=== PATIENT | male | born 1950 | race Caucasian/White ===

== ENCOUNTER 2016-04-08 22:18 | Inpatient (IN) | payer SELFPAY ==
[~2016-04-08] VITALS: Ht 175.3 cm; Wt 90.7 kg
[2016-04-08] MEDS ORDERED: OMEP20CA10 PO (22:38)
[2016-04-08] MEDS ORDERED: CARB-93 PO (22:38)
[2016-04-08] MEDS ORDERED: AMLO5TAB2 PO (22:38)
[2016-04-08] MEDS ORDERED: PROP10TA10 PO (22:38)
[2016-04-08] MEDS ORDERED: VENL75TA4 PO (22:38)
[2016-04-08] MEDS ORDERED: ROPI1TAB2 PO (22:38)
[2016-04-08] MEDS ORDERED: ZOLP10TA6 PO (22:38)
[2016-04-08] MEDS ORDERED: LORA1TAB PO (22:38)
[2016-04-08] MEDS ORDERED: IV SET PRIMARY 1 EA INFUS.SET MC ONE (22:43)
[2016-04-08] MEDS ORDERED: IV NS 0.9% 1,000 ML ONE (22:43)
[2016-04-08 22:53] LABS: BASOPHILS % (AUTO) 0.1 % (0.0-2.0); DIFF TOTAL % 100 %; EOSINOPHILS % (AUTO) 0.1 % (0.0-6.0); HEMATOCRIT 32 % (39-51); HEMOGLOBIN 10.9 g/dL (13.5-17.5); LYMPHOCYTES # (AUTO) 0.4 /CMM (0.8-4.8); LYMPHOCYTES % (AUTO) 2.2 % (20.0-44.0); MEAN CORPUSCULAR HEMOGLOBIN 31 PG (26.0-33.0); MEAN CORPUSCULAR HGB CONC 34 g/dl (31.0-36.0); MEAN CORPUSCULAR VOLUME 90 fL (80-96); MONOCYTES % (AUTO) 5.9 % (2.0-12.0); NEUTROPHILS # (AUTO) 14.8 /CMM (1.8-8.9); NEUTROPHILS % (AUTO) 91.7 % (43.0-81.0); PLATELET COUNT (AUTO) 242 /CMM (150-450); RED BLOOD CELL COUNT(AUTO) 3.54 MIL/uL (4.5-6.0); WHITE BLOOD COUNT (AUTO) 16.1 K/uL (4.3-11.0)
[2016-04-08] MEDS ORDERED: IV NS 0.9% 1,000 ML BAG IV ONE (23:00)
[2016-04-08 23:02] LABS: ANION GAP 16 (5-14); CALCIUM, SERUM 9.2 mg/dL (8.5-10.1); CARBON DIOXIDE 21 mmol/L (21-32); CHLORIDE 92 mmol/L (98-107); CREATININE 2.1 mg/dL (0.6-1.3); GFR 32 mL/min (>60); GLUCOSE 174 mg/dL (74-106); POTASSIUM 3.4 mmol/L (3.5-5.1); SODIUM SERUM 126 mmol/L (136-145); UREA NITROGEN, BLOOD 19 mg/dL (7-18)
[2016-04-08 23:08] LABS: INR 1.18 (0.87-1.13); PROTHROMBIN TIME 12.8 SECS (9.5-12.7)
[2016-04-08 23:09] LABS: ALANINE AMINOTRANSFERASE 7 U/L (12-78); ALBUMIN 2.9 g/dL (3.4-5.0); ASPARTATE AMINOTRANSFERASE 21 U/L (15-37); BILIRUBIN,DIRECT 0.5 mg/dL (0.0-0.2); BILIRUBIN,TOTAL 1.5 mg/dL (0.2-1.0); TOTAL PROTEIN, SERUM 8.2 g/dL (6.4-8.2)
[2016-04-08 23:10] LABS: TROPONIN I 0.095 ng/mL (0.00-0.056)
[2016-04-08 23:17] LABS: THYROID STIMULATING HORMONE 0.994 uIU/mL (0.358-3.74)
[2016-04-08 23:23] LABS: BAND % (MANUAL) 2 % (0.0-5.0); LYMPHOCYTES % (MANUAL) 1 % (16-48); PLATELET ESTIMATE ADEQUATE
[2016-04-08 23:34] LABS: LACTIC ACID 4.4 mmol/L (0.4-2.0)
[2016-04-08 23:42] LABS: *LACTIC ACID REFLEX FLAG YES
[2016-04-09] MEDS ORDERED: CEFTRIAXONE 1GM BAG (ER ONLY) 1 GM/50 ML PIGGYBACK IV ONE
[2016-04-09 00:14] LABS: KETONES,URINE 1+ (NEGATIVE); LEUKOCYTE ESTERASE ,URINE NEGATIVE (NEGATIVE)
[2016-04-09 00:16] LABS: ADD UA MICROSCOPIC YES
[2016-04-09 00:22] LABS: ADD URINE CULTURE NO; RBC,URINE 0-2 /HPF (0-2)
[2016-04-09] MEDS ORDERED: ASPIRIN 325 MG TABLET PO ONE (00:30)
[2016-04-09] MEDS ORDERED: IV NS 0.9% 1,000 ML BAG IV ONE (00:30)
[2016-04-09] MEDS ORDERED: IV SET PRIMARY 1 EA INFUS.SET MC ONE (00:34)
[2016-04-09] MEDS ORDERED: CEFTRIAXONE 1GM BAG (ER ONLY) 50 ML IV ONE (00:34)
[2016-04-09] MEDS ORDERED: IV SET PRIMARY PUMP SET 1 EA INFUS.SET MC ONE ×2 (00:34→09:30)
[2016-04-09] MEDS ORDERED: IV NS 0.9% 1,000 ML ONE (00:34)
[2016-04-09] MEDS ORDERED: IV NS 0.9% 500 ML IV ONE (00:34)
[2016-04-09] MEDS ORDERED: ASPIRIN 325 MG TABLET ONE (00:34)
[2016-04-09 02:00] VITALS: BP 147/85
[2016-04-09] MEDS ORDERED: IV NS 0.9% 1,000 ML IV PRN (02:39)
[2016-04-09] MEDS ORDERED: ONDANSETRON HCL/PF 4 MG/2 ML VIAL IVP PRN (03:00)
[2016-04-09] MEDS ORDERED: CEFTRIAXONE 1 G in IV D5W 50 ML IV SCH (03:00)
[2016-04-09] MEDS ORDERED: ENOXAPARIN SODIUM 40 MG/0.4 ML DISP.SYRIN SQ SCH (03:00)
[2016-04-09 03:24] LABS: CALCIUM, SERUM 8.5 mg/dL (8.5-10.1); CREATININE 1.7 mg/dL (0.6-1.3); PHOSPHORUS 2.5 mg/dL (2.5-4.9); POTASSIUM 3.3 mmol/L (3.5-5.1)
[2016-04-09 03:54] LABS: DIFF TOTAL % 100 %; HEMATOCRIT 28 % (39-51); HEMOGLOBIN 9.7 g/dL (13.5-17.5); LYMPHOCYTES # (AUTO) 0.4 /CMM (0.8-4.8); LYMPHOCYTES % (AUTO) 2.7 % (20.0-44.0); MEAN CORPUSCULAR HEMOGLOBIN 31 PG (26.0-33.0); MEAN CORPUSCULAR HGB CONC 35 g/dl (31.0-36.0); MEAN CORPUSCULAR VOLUME 90 fL (80-96); MONOCYTES # (AUTO) 1.1 /CMM (0.1-1.30); MONOCYTES % (AUTO) 7.9 % (2.0-12.0); NEUTROPHILS % (AUTO) 89.4 % (43.0-81.0); PLATELET COUNT (AUTO) 212 /CMM (150-450); RED BLOOD CELL COUNT(AUTO) 3.11 MIL/uL (4.5-6.0); WHITE BLOOD COUNT (AUTO) 13.4 K/uL (4.3-11.0)
[2016-04-09] MEDS ORDERED: ENOXAPARIN SODIUM 40 MG/0.4 ML DISP.SYRIN SQ ONE (04:31)
[2016-04-09 05:00] VITALS: BP 163/90
[2016-04-09 08:00] VITALS: BP 167/101
[2016-04-09] MEDS: ropiniROLE 0.5 MG TABLET PO SCH ×3 (09:48→16:16)
[2016-04-09] MEDS: AMLODIPINE BESYLATE 5 MG TABLET PO SCH (09:49)
[2016-04-09] MEDS: PROPRANOLOL HCL 10 MG TABLET PO SCH ×3 (09:50→16:16)
[2016-04-09] MEDS: CARBIDOPA/LEVODOPA 25/100 MG 1 UDTAB PO SCH ×4 (09:55→21:00)
[2016-04-09] MEDS ORDERED: AZITHROMYCIN 250 MG TABLET PO ONE (11:00)
[2016-04-09 11:04] LABS: IRON, SERUM 19 ug/dl (50-175); PERCENT SATURATION 10 % (14-33); TOTAL IRON BINDING CAPACITY 198 ug/dl (250-450)
[2016-04-09 12:00] VITALS: BP 121/86
[2016-04-09] MEDS ORDERED: POTASSIUM CHLORIDE 10 MEQ TABLET.SA PO ONE (12:00)
[2016-04-09] MEDS ORDERED: Magnesium 1GM/D5W 100ML PREMIX 100 ML IV SCH (12:00)
[2016-04-09] MEDS ORDERED: SECONDARY IV SET 1 EA INFUS.SET MC ONE (12:15)
[2016-04-09] MEDS: IV NS 0.9% 1,000 ML IV PRN (12:50)
[2016-04-09] MEDS ORDERED: Z GUARD REMEDY 2 OZ OINT TP PRN (13:30)
[2016-04-09] MEDS: Z GUARD REMEDY 2 OZ OINT TP SCH ×2 (15:16→16:18)
[2016-04-09 16:00] VITALS: BP 154/96
[2016-04-09] MEDS: LORAZEPAM 1 MG TABLET PO SCH (16:17)
[2016-04-09] MEDS ORDERED: VENLAFAXINE 37.5 MG TABLET PO SCH (17:00)
[2016-04-09] MEDS ORDERED: ZOLPIDEM TARTRATE 10 MG TABLET PO SCH (18:00)
[2016-04-09 20:00] VITALS: BP 143/80
[2016-04-09] MEDS: VENLAFAXINE XR 150 MG CAP.SR.24H PO SCH (21:00)
[2016-04-09] MEDS ORDERED: ALBUTEROL FS 2.5 MG/0.5 ML VIAL.NEB NEB PRN (23:30)
[2016-04-09] MEDS ORDERED: IPRATROPIUM NEB FS 0.5 MG/2.5 ML AMPUL.NEB NEB PRN (23:30)
[2016-04-10] VITALS (8 sets, daily range): BP systolic 119–161; BP diastolic 72–87
[2016-04-10] MEDS ORDERED: ACETAMINOPHEN 650 MG/SUPP.RECT RC ONE (00:58)
[2016-04-10] MEDS ORDERED: ACETAMINOPHEN 650 MG/SUPP.RECT RC PRN (01:00)
[2016-04-10] MEDS: CEFTRIAXONE 1 G in IV D5W 50 ML IV SCH ×2 (01:11→22:55)
[2016-04-10] MEDS: IV NS 0.9% 1,000 ML IV PRN (01:12)
[2016-04-10 07:29] LABS: DIFF TOTAL % 100 %; HEMATOCRIT 28 % (39-51); HEMOGLOBIN 9.7 g/dL (13.5-17.5); LYMPHOCYTES # (AUTO) 0.4 /CMM (0.8-4.8); LYMPHOCYTES % (AUTO) 3.2 % (20.0-44.0); MEAN CORPUSCULAR HEMOGLOBIN 31 PG (26.0-33.0); MEAN CORPUSCULAR HGB CONC 35 g/dl (31.0-36.0); MEAN CORPUSCULAR VOLUME 90 fL (80-96); MONOCYTES # (AUTO) 0.7 /CMM (0.1-1.30); MONOCYTES % (AUTO) 6.3 % (2.0-12.0); NEUTROPHILS % (AUTO) 90.5 % (43.0-81.0); PLATELET COUNT (AUTO) 205 /CMM (150-450)
[2016-04-10 07:48] LABS: CALCIUM, SERUM 8.6 mg/dL (8.5-10.1); CREATININE 1.6 mg/dL (0.6-1.3); PHOSPHORUS 2.7 mg/dL (2.5-4.9); POTASSIUM 3.3 mmol/L (3.5-5.1)
[2016-04-10] MEDS: VENLAFAXINE XR 150 MG CAP.SR.24H PO SCH ×2 (08:43→21:23)
[2016-04-10] MEDS: AMLODIPINE BESYLATE 5 MG TABLET PO SCH (08:43)
[2016-04-10] MEDS: PROPRANOLOL HCL 10 MG TABLET PO SCH (08:43)
[2016-04-10] MEDS: LORAZEPAM 1 MG TABLET PO SCH ×2 (08:43→16:05)
[2016-04-10] MEDS: ropiniROLE 0.5 MG TABLET PO SCH ×3 (08:43→16:08)
[2016-04-10] MEDS: Z GUARD REMEDY 2 OZ OINT TP SCH ×2 (08:44→16:05)
[2016-04-10] MEDS: ENOXAPARIN SODIUM 40 MG/0.4 ML DISP.SYRIN SQ SCH (08:45)
[2016-04-10] MEDS: CARBIDOPA/LEVODOPA 25/100 MG 1 UDTAB PO SCH ×4 (08:45→21:23)
[2016-04-10] MEDS ORDERED: POTASSIUM CHLORIDE 20 MEQ TAB.PRT.SR PO SCH (11:00)
[2016-04-10] MEDS: AZITHROMYCIN 250 MG TABLET PO SCH (11:28)
[2016-04-10 11:41] LABS: THYROID STIMULATING HORMONE 0.269 uIU/mL (0.358-3.74)
[2016-04-10] MEDS: ACETAMINOPHEN 325 MG TABLET PO PRN (12:33)
[2016-04-10 13:08] LABS: ABG BASE EXCESS -1.3 mmol/L; ABG PCO2 31.8 mmHg (35.0-45.0); ABG PH 7.457 (7.350-7.450); ABG TOTAL HEMOGLOBIN 10.9 G/dL (13.5-18.0); ALLEN TEST Pass; AaDO2 318.8 mmHg
[2016-04-10] MEDS: SOD FERRIC GLUC 125 MG in IV NS 0.9% 100 ML IV SCH (16:05)
[2016-04-10] MEDS: LACTOBACILLUS RHAMNOSUS GG 1 EACH CAP.SPRINK PO SCH (16:08)
[2016-04-10] MEDS: ALBUTEROL FS 2.5 MG/0.5 ML VIAL.NEB NEB SCH ×3 (16:21→22:52)
[2016-04-10] MEDS: BOOST PLUS FOOD-CHOCLATE 237 ML BOX PO SCH (18:47)
[2016-04-10] MEDS: IPRATROPIUM NEB FS 0.5 MG/2.5 ML AMPUL.NEB NEB SCH ×2 (20:12→22:51)
[2016-04-10] MEDS ORDERED: SECONDARY IV SET 1 EA INFUS.SET MC ONE (22:56)
[2016-04-10] MEDS: ZOLPIDEM TARTRATE 10 MG TABLET PO PRN (23:05)
[2016-04-11] VITALS: BP 150/88
[2016-04-11] MEDS: IPRATROPIUM NEB FS 0.5 MG/2.5 ML AMPUL.NEB NEB SCH ×5 (03:45→21:01)
[2016-04-11] MEDS: ALBUTEROL FS 2.5 MG/0.5 ML VIAL.NEB NEB SCH ×5 (03:45→21:01)
[2016-04-11 04:00] VITALS: BP 155/88
[2016-04-11 07:14] LABS: DIFF TOTAL % 100 %; EOSINOPHILS % (AUTO) 0.1 % (0.0-6.0); HEMATOCRIT 26 % (39-51); HEMOGLOBIN 9.1 g/dL (13.5-17.5); LYMPHOCYTES # (AUTO) 0.3 /CMM (0.8-4.8); LYMPHOCYTES % (AUTO) 4.2 % (20.0-44.0); MEAN CORPUSCULAR HEMOGLOBIN 31 PG (26.0-33.0); MEAN CORPUSCULAR HGB CONC 35 g/dl (31.0-36.0); MEAN CORPUSCULAR VOLUME 90 fL (80-96); MONOCYTES # (AUTO) 0.6 /CMM (0.1-1.30); NEUTROPHILS # (AUTO) 6.8 /CMM (1.8-8.9); NEUTROPHILS % (AUTO) 87.7 % (43.0-81.0); PLATELET COUNT (AUTO) 198 /CMM (150-450); RED BLOOD CELL COUNT(AUTO) 2.92 MIL/uL (4.5-6.0); WHITE BLOOD COUNT (AUTO) 7.7 K/uL (4.3-11.0)
[2016-04-11 07:34] LABS: ALBUMIN 1.8 g/dL (3.4-5.0); BILIRUBIN,TOTAL 1.1 mg/dL (0.2-1.0); CALCIUM, SERUM 8.3 mg/dL (8.5-10.1); CREATININE 1.5 mg/dL (0.6-1.3); PHOSPHORUS 2.3 mg/dL (2.5-4.9); POTASSIUM 3.5 mmol/L (3.5-5.1); TOTAL PROTEIN, SERUM 6.3 g/dL (6.4-8.2)
[2016-04-11 08:00] VITALS: BP 164/94
[2016-04-11] MEDS: AMLODIPINE BESYLATE 5 MG TABLET PO SCH (08:44)
[2016-04-11] MEDS: DILTIAZEM HCL CD 240 MG PO SCH (08:44)
[2016-04-11] MEDS: BOOST PLUS FOOD-CHOCLATE 237 ML BOX PO SCH ×3 (08:44→16:24)
[2016-04-11] MEDS: LORAZEPAM 1 MG TABLET PO SCH ×2 (08:45→16:25)
[2016-04-11] MEDS: CARBIDOPA/LEVODOPA 25/100 MG 1 UDTAB PO SCH ×4 (08:45→21:27)
[2016-04-11] MEDS: VENLAFAXINE XR 150 MG CAP.SR.24H PO SCH ×2 (08:45→21:27)
[2016-04-11] MEDS: ropiniROLE 0.5 MG TABLET PO SCH ×3 (08:45→16:25)
[2016-04-11] MEDS: LACTOBACILLUS RHAMNOSUS GG 1 EACH CAP.SPRINK PO SCH ×2 (08:45→16:25)
[2016-04-11] MEDS: Z GUARD REMEDY 2 OZ OINT TP SCH ×2 (08:48→16:26)
[2016-04-11] MEDS: ENOXAPARIN SODIUM 40 MG/0.4 ML DISP.SYRIN SQ SCH (08:52)
[2016-04-11] MEDS: AZITHROMYCIN 250 MG TABLET PO SCH (11:47)
[2016-04-11] MEDS ORDERED: K PHOS NEUTRAL 250 MG TABLET PO ONE (14:00)
[2016-04-11] MEDS: SOD FERRIC GLUC 125 MG in IV NS 0.9% 100 ML IV SCH (14:40)
[2016-04-11 15:54] VITALS: BP 135/74
[2016-04-11 20:00] VITALS: BP 134/76
[2016-04-11] MEDS: IBUPROFEN 400 MG TABLET PO PRN (21:27)
[2016-04-11] MEDS: CEFTRIAXONE 1 G in IV D5W 50 ML IV SCH (23:02)
[2016-04-12] MEDS: IPRATROPIUM NEB FS 0.5 MG/2.5 ML AMPUL.NEB NEB SCH ×7 (00:46→23:32)
[2016-04-12] MEDS: ALBUTEROL FS 2.5 MG/0.5 ML VIAL.NEB NEB SCH ×7 (00:46→23:32)
[2016-04-12] MEDS ORDERED: MAG HYDROX/AL HYDROX/SIMETH 30 ML UDC PO PRN (01:00)
[2016-04-12 06:26] LABS: EOSINOPHILS % (AUTO) 0.1 % (0.0-6.0); HEMATOCRIT 28 % (39-51); HEMOGLOBIN 9.5 g/dL (13.5-17.5); LYMPHOCYTES # (AUTO) 0.4 /CMM (0.8-4.8); LYMPHOCYTES % (AUTO) 6.7 % (20.0-44.0); MEAN CORPUSCULAR HEMOGLOBIN 31 PG (26.0-33.0); MEAN CORPUSCULAR HGB CONC 34 g/dl (31.0-36.0); MEAN CORPUSCULAR VOLUME 90 fL (80-96); MONOCYTES # (AUTO) 0.7 /CMM (0.1-1.30); MONOCYTES % (AUTO) 11.2 % (2.0-12.0); NEUTROPHILS # (AUTO) 4.9 /CMM (1.8-8.9); PLATELET COUNT (AUTO) 213 /CMM (150-450)
[2016-04-12 06:46] LABS: CALCIUM, SERUM 8.4 mg/dL (8.5-10.1); CREATININE 1.4 mg/dL (0.6-1.3)
[2016-04-12 06:56] LABS: DIFF TOTAL % 100 %
[2016-04-12] MEDS: IBUPROFEN 400 MG TABLET PO PRN (07:35)
[2016-04-12] MEDS: BOOST PLUS FOOD-CHOCLATE 237 ML BOX PO SCH ×3 (07:36→16:46)
[2016-04-12 08:07] LABS: POTASSIUM 2.8 mmol/L (3.5-5.1)
[2016-04-12] MEDS ORDERED: POTASSIUM CHLORIDE 20 MEQ TAB.PRT.SR PO ONE (08:30)
[2016-04-12] MEDS: LACTOBACILLUS RHAMNOSUS GG 1 EACH CAP.SPRINK PO SCH ×2 (08:39→16:39)
[2016-04-12] MEDS: ropiniROLE 0.5 MG TABLET PO SCH ×3 (08:39→16:39)
[2016-04-12] MEDS: DILTIAZEM HCL CD 240 MG PO SCH (08:39)
[2016-04-12] MEDS: VENLAFAXINE XR 150 MG CAP.SR.24H PO SCH ×2 (08:39→20:42)
[2016-04-12] MEDS: AMLODIPINE BESYLATE 5 MG TABLET PO SCH (08:40)
[2016-04-12] MEDS: LORAZEPAM 1 MG TABLET PO SCH (08:40)
[2016-04-12] MEDS: Z GUARD REMEDY 2 OZ OINT TP SCH ×2 (08:41→16:40)
[2016-04-12] MEDS: CARBIDOPA/LEVODOPA 25/100 MG 1 UDTAB PO SCH ×4 (08:42→20:42)
[2016-04-12] MEDS: ENOXAPARIN SODIUM 40 MG/0.4 ML DISP.SYRIN SQ SCH (08:43)
[2016-04-12] MEDS: AZITHROMYCIN 250 MG TABLET PO SCH (11:58)
[2016-04-12] MEDS ORDERED: IV NS 0.9% 250 ML IV ONE (13:11)
[2016-04-12] MEDS: SOD FERRIC GLUC 125 MG in IV NS 0.9% 100 ML IV SCH (13:12)
[2016-04-12] MEDS ORDERED: LORAZEPAM 1 MG TABLET PO PRN (15:30)
[2016-04-12 16:00] VITALS: BP 113/62
[2016-04-12 22:00] VITALS: BP 122/74
[2016-04-12] MEDS: CEFTRIAXONE 1 G in IV D5W 50 ML IV SCH (23:23)
[2016-04-13] MEDS: ACETAMINOPHEN 325 MG TABLET PO PRN (02:48)
[2016-04-13] MEDS: IPRATROPIUM NEB FS 0.5 MG/2.5 ML AMPUL.NEB NEB SCH ×6 (03:30→23:39)
[2016-04-13] MEDS: ALBUTEROL FS 2.5 MG/0.5 ML VIAL.NEB NEB SCH ×6 (03:30→23:39)
[2016-04-13 08:08] LABS: BASOPHILS % (AUTO) 0.1 % (0.0-2.0); DIFF TOTAL % 100 %; EOSINOPHILS % (AUTO) 0.1 % (0.0-6.0); HEMATOCRIT 27 % (39-51); HEMOGLOBIN 9.4 g/dL (13.5-17.5); LYMPHOCYTES # (AUTO) 0.5 /CMM (0.8-4.8); LYMPHOCYTES % (AUTO) 7.6 % (20.0-44.0); MEAN CORPUSCULAR HEMOGLOBIN 31 PG (26.0-33.0); MEAN CORPUSCULAR HGB CONC 35 g/dl (31.0-36.0); MEAN CORPUSCULAR VOLUME 91 fL (80-96); MONOCYTES # (AUTO) 0.7 /CMM (0.1-1.30); MONOCYTES % (AUTO) 10.8 % (2.0-12.0); NEUTROPHILS # (AUTO) 5.2 /CMM (1.8-8.9); NEUTROPHILS % (AUTO) 81.4 % (43.0-81.0); PLATELET COUNT (AUTO) 249 /CMM (150-450); RED BLOOD CELL COUNT(AUTO) 3.01 MIL/uL (4.5-6.0); WHITE BLOOD COUNT (AUTO) 6.4 K/uL (4.3-11.0)
[2016-04-13 08:20] LABS: CALCIUM, SERUM 8.4 mg/dL (8.5-10.1); CREATININE 1.3 mg/dL (0.6-1.3); POTASSIUM 3.1 mmol/L (3.5-5.1)
[2016-04-13 08:23] VITALS: BP 130/71
[2016-04-13] MEDS: BOOST PLUS FOOD-CHOCLATE 237 ML BOX PO SCH ×3 (08:26→17:14)
[2016-04-13] MEDS: VENLAFAXINE XR 150 MG CAP.SR.24H PO SCH ×2 (08:27→20:53)
[2016-04-13] MEDS: DILTIAZEM HCL CD 240 MG PO SCH (08:27)
[2016-04-13] MEDS: ropiniROLE 0.5 MG TABLET PO SCH ×3 (08:27→17:14)
[2016-04-13] MEDS: LACTOBACILLUS RHAMNOSUS GG 1 EACH CAP.SPRINK PO SCH ×2 (08:27→17:14)
[2016-04-13] MEDS: AMLODIPINE BESYLATE 5 MG TABLET PO SCH (08:28)
[2016-04-13] MEDS: CARBIDOPA/LEVODOPA 25/100 MG 1 UDTAB PO SCH ×4 (08:29→20:53)
[2016-04-13] MEDS: ENOXAPARIN SODIUM 40 MG/0.4 ML DISP.SYRIN SQ SCH (08:30)
[2016-04-13] MEDS: Z GUARD REMEDY 2 OZ OINT TP SCH ×2 (09:20→17:14)
[2016-04-13] MEDS ORDERED: POTASSIUM CHLORIDE 20 MEQ POWDER PACKET GT SCH (12:00)
[2016-04-13] MEDS ORDERED: IV SET PRIMARY PUMP SET 1 EA INFUS.SET MC ONE (14:39)
[2016-04-13] MEDS: SOD FERRIC GLUC 125 MG in IV NS 0.9% 100 ML IV SCH (14:41)
[2016-04-13 16:06] VITALS: BP 136/80
[2016-04-13 20:11] VITALS: BP 103/61
[2016-04-13] MEDS: ZOLPIDEM TARTRATE 10 MG TABLET PO PRN (21:59)
[2016-04-13] MEDS: CEFTRIAXONE 1 G in IV D5W 50 ML IV SCH (22:00)
[2016-04-14] MEDS: IPRATROPIUM NEB FS 0.5 MG/2.5 ML AMPUL.NEB NEB SCH ×2 (03:30→07:02)
[2016-04-14] MEDS: ALBUTEROL FS 2.5 MG/0.5 ML VIAL.NEB NEB SCH ×2 (03:30→07:02)
[2016-04-14 07:11] LABS: CALCIUM, SERUM 8.8 mg/dL (8.5-10.1); CREATININE 1.3 mg/dL (0.6-1.3); POTASSIUM 3.3 mmol/L (3.5-5.1)
[2016-04-14 08:00] VITALS: BP 126/82
[2016-04-14] MEDS: VENLAFAXINE XR 150 MG CAP.SR.24H PO SCH (08:34)
[2016-04-14 08:35] VITALS: BP 126/82
[2016-04-14] MEDS: LACTOBACILLUS RHAMNOSUS GG 1 EACH CAP.SPRINK PO SCH (08:35)
[2016-04-14] MEDS: CARBIDOPA/LEVODOPA 25/100 MG 1 UDTAB PO SCH (08:35)
[2016-04-14] MEDS: DILTIAZEM HCL CD 240 MG PO SCH (08:35)
[2016-04-14] MEDS: AMLODIPINE BESYLATE 5 MG TABLET PO SCH (08:35)
[2016-04-14] MEDS: ropiniROLE 0.5 MG TABLET PO SCH (08:35)
[2016-04-14] MEDS: ENOXAPARIN SODIUM 40 MG/0.4 ML DISP.SYRIN SQ SCH (08:37)
[2016-04-14] MEDS: Z GUARD REMEDY 2 OZ OINT TP SCH (08:38)
[2016-04-14] MEDS: BOOST PLUS FOOD-CHOCLATE 237 ML BOX PO SCH (08:38)
[2016-04-14] MEDS ORDERED: DILT240C88 PO (09:45)
[2016-04-14] MEDS ORDERED: LORA1TAB PO (09:45)
== END 2016-04-14 12:10 | DRG 871 ==
LOC: ER 22:20 → MED 04-09 00:45 → TELE 04-09 02:17 → MED 04-11 09:02
PROVIDERS: ADMIT Nurse Practitioner Acute Care; ATTEND Nurse Practitioner Acute Care
DX: A41.9 Sepsis, unspecified organism (principal); N17.0 Acute kidney failure with tubular necrosis; I21.4 Non-ST elevation (NSTEMI) myocardial infarction; J15.9 Unspecified bacterial pneumonia; J96.01 Acute respiratory failure with hypoxia; G93.40 Encephalopathy, unspecified; N39.0 Urinary tract infection, site not specified; F33.1 Major depressive disorder, recurrent, moderate; E87.1 Hypo-osmolality and hyponatremia; E44.0 Moderate protein-calorie malnutrition; E87.2 Acidosis; R65.20 Severe sepsis without septic shock; G20 Parkinson's disease; Z96.649 Presence of unspecified artificial hip joint; F17.210 Nicotine dependence, cigarettes, uncomplicated; E87.6 Hypokalemia; F41.9 Anxiety disorder, unspecified; D64.9 Anemia, unspecified; E83.42 Hypomagnesemia; F03.90 Unspecified dementia, unspecified severity, without behavioral disturbance, psychotic disturbance, mood disturbance, and anxiety; I10 Essential (primary) hypertension
CPT/HCPCS: 36415; 36600; 70450-TC; 71010-TC; 80048-TC; 80053-TC; 80061-TC; 80076-TC; 81000-TC; 82728-TC; 82962-TC; 83540-TC; 83605-TC; 83735-TC; 84100-TC; 84443-TC; 84484-TC; 85025-TC; 85730-TC; 87040-TC; 87070-TC; 87081-TC; 87086-TC; 92521; 93307-TC; 94799-TC; 97001-TC; 97116-TC; 97530-TC; A4606; J0696; J1650; J2916; J3475; J7030; J7040; J7050; J7060; Z7610